=== PATIENT | male | born 1980 ===

== ENCOUNTER 2021-07-16 15:33 | Emergency (ER) | payer SELFPAY ==
[~2021-07-16] VITALS: Ht 154.9 cm; Wt 127.0 kg
[2021-07-16] MEDS ORDERED: EPINEPHrine HCL 1 MG/10 ML SYRG IV ONE (15:34)
[2021-07-16] MEDS ORDERED: SODIUM BICARBONATE 8.4% INJ 50ML SYRINGE IV ONE (15:34)
[2021-07-16] MEDS ORDERED: CALCIUM CHLOR(10%) 100MG/ML 10ML SYRINGE IV ONE (15:34)
[2021-07-16] MEDS ORDERED: ETOMIDATE (2MG/ML) 20ML VIAL IV ONE (15:45)
[2021-07-16] MEDS ORDERED: SUCCINYLCHOLINE CHLORIDE 20 MG/ML 10ML VIAL IV ONE (15:45)
[2021-07-16] MEDS ORDERED: PROPOFOL 100 ML IV ONE (16:02)
[2021-07-16 16:14] VITALS: BP 192/61
[2021-07-16 16:15] LABS: Urine WBC None Seen /hpf (0 - 3)
[2021-07-16] MEDS ORDERED: SODIUM CHLORIDE 0.9% 1,000 ML IV ONE ×4 (16:15→18:15)
[2021-07-16] MEDS ORDERED: PROPOFOL 100 ML IV SCH (16:15)
[2021-07-16 16:25] LABS: Anion Gap 14 (5-15); BUN/Creatinine Ratio 13.2; Blood Alcohol < 3.0 mg/dL (0-5); Blood Urea Nitrogen 36 mg/dL (7-18); Calcium 8.5 mg/dL (8.5-10.1); Carbon Dioxide 18 mmol/L (21-32); Chloride 102 mmol/L (98-107); GFR African American 33 mL/min; GFR Non-African American 28 mL/min; Glucose 109 mg/dL (74-106); Magnesium 2.7 mg/dL (1.6-2.6); Potassium 5.4 mmol/L (3.5-5.1); Sodium 134 mmol/L (136-145)
[2021-07-16 16:27] LABS: Lactic Acid w/Reflex 6.4 mmol/L (0.4-2.0)
[2021-07-16] MEDS ORDERED: NOREPINEPHRINE 8 MG/250ML KIT 0 ML IV ONE (16:28)
[2021-07-16] MEDS ORDERED: NOREPINEPHRINE 8 MG/250ML KIT 250 ML IV SCH (16:30)
[2021-07-16 16:31] LABS: Basophils # (auto) 0.1 10 ^3/uL (0-0.2); Basophils % (auto) 0.6 % (0.0-2.0); Eosinophils # (auto) 0 10 ^3/uL (0-0.8); Eosinophils % (auto) 0.1 % (0.0-7.0); Hematocrit 39.1 % (41.0-53.0); Hemoglobin 13.6 g/dL (13.5-17.5); Lymphocytes # (auto) 1.6 10 ^3/uL (0.4-5.4); Lymphocytes % (auto) 15.6 % (10.0-50.0); Mean Corpuscular Hemoglobin 30.6 pg (28.0-32.0); Mean Corpuscular Hgb Conc. 34.7 g/dL (32.0-36.0); Mean Corpuscular Volume 88.2 fL (80.0-100.0); Monocytes # (auto) 0.5 10 ^3/uL (0-1.3); Neutrophils % (auto) 78.7 % (37.0-80.0); Nucleated Red Blood Cells % 0.4 %; Red Blood Cells 4.43 10^6/uL (4.5-5.90); Red Cell Distribution Width 13.4 % (11.8-14.3); White Blood Cell 10.1 10^3/uL (4.4-10.8)
[2021-07-16 16:35] LABS: Amphetamine Screen, Urine POSITIVE (NEGATIVE); Barbiturate Scree,Urine NEGATIVE (NEGATIVE); Benzodiazephine Screen, Urine NEGATIVE (NEGATIVE); Cannabinoid Screen, Urine NEGATIVE (NEGATIVE); Cocaine Screen, Urine NEGATIVE (NEGATIVE); Opiate Scree,Urine NEGATIVE (NEGATIVE); Phencyclidine Screen, Urine NEGATIVE (NEGATIVE)
[2021-07-16 16:36] LABS: Urine Amorphous Crystal MOD /hpf (None Seen); Urine Bacteria NONE SEEN /hpf (None Seen); Urine Blood 3+ /uL (Negative); Urine Mucus FEW (None Seen); Urine Specific Gravity 1.027 (1.001-1.035); Urine Sperm PRESENT /hpf (None Seen)
[2021-07-16 16:51] LABS: Alanine Aminotransferase 193 U/L (16-61); Alkaline Phosphatase 72 U/L (45-117); Aspartate Aminotransferase 585 U/L (15-37); Bilirubin, Total 1.6 mg/dL (0.2-1.0); Total Protein 7.5 g/dL (6.4-8.2)
[2021-07-16 18:05] VITALS: BP 63/22
[2021-07-16] MEDS ORDERED: SODIUM BICARBONATE 8.4% INJ 50ML SYRINGE ONE (18:27)
[2021-07-16 19:20] LABS: Creatine Kinase IFCC 43560 U/L (39-308)
== END 2021-07-16 18:33 ==
LOC: ER 15:33
DX: I46.9 Cardiac arrest, cause unspecified (principal); T67.01XA Heatstroke and sunstroke, initial encounter; J96.00 Acute respiratory failure, unspecified whether with hypoxia or hypercapnia; M62.82 Rhabdomyolysis; Z20.822 Contact with and (suspected) exposure to COVID-19
CPT/HCPCS: 31500; 36415; 36556; 36600; 71045; 80053; 80307; 80320; 80329; 81001; 82010; 82550; 82805; 83605; 83735; 83880; 84484; 85025; 85379; 87040; 87070; 87077; 87186; 87205; 87426; 92950; 96360; 96361; 99291; C9803; J0171; J2704; U0003; 94002